=== PATIENT | female | born 1970 | race Caucasian/White ===

== ENCOUNTER → 2017-07-12 | Outpatient (CLI) | payer BC ==
[2017-07-12 15:29] LABS: ADD MAN DIFF? NO
[2017-07-12 15:34] LABS: BASO % 1 % (0-3); EOS % 1 % (0-3); HEMOGLOBIN 13.9 g/dL (12.0-15.5); LYMPH # 1.6 x10^3/uL (1.0-4.8); LYMPH % 27 % (24-48); MEAN CORPUSCULAR HEMOGLOBIN 30 pg (25-35); MEAN CORPUSCULAR HGB CONC 35 g/dL (31-37); MEAN CORPUSCULAR VOLUME 87 fL (79-100); MONO # 0.3 x10^3/uL (0.0-1.1); MONO % 5 % (0-9); NEUT # 4.1 x10^3uL (1.8-7.7); NEUT % 67 % (31-73); PLATELET COUNT 241 x10^3/uL (140-400); RED BLOOD COUNT 4.58 x10^6/uL (3.50-5.40); RED CELL DISTRIBUTION WIDTH 13.1 % (11.5-14.5); WHITE BLOOD COUNT 6.1 x10^3/uL (4.0-11.0)
[2017-07-12 15:43] LABS: ALBUMIN 4.1 g/dL (3.4-5.0); ALBUMIN/GLOBULIN RATIO 1.1 (1.0-1.7); ALK PHOS 81 U/L (46-116); ALT (SGPT) 32 U/L (14-59); ANION GAP 9 (6-14); AST (SGOT) 16 U/L (15-37); BLOOD UREA NITROGEN 11 mg/dL (7-20); BUN/CREATININE RATIO 14 (6-20); CALCIUM 8.5 mg/dL (8.5-10.1); CARBON DIOXIDE 29 mmol/L (21-32); CHLORIDE 102 mmol/L (98-107); CREATININE 0.8 mg/dL (0.6-1.0); GFR 77.2; GLUCOSE 128 mg/dL (70-99); POTASSIUM 3.7 mmol/L (3.5-5.1); SODIUM 140 mmol/L (136-145); TOTAL BILIRUBIN 0.9 mg/dL (0.2-1.0); TOTAL PROTEIN 7.8 g/dL (6.4-8.2)
[2017-07-12 17:07] LABS: BILIRUBIN,URINE NEGATIVE (NEG); CLARITY,URINE CLEAR; COLOR,URINE YELLOW; GLUCOSE,URINE NEGATIVE (NEG); NITRITE,URINE NEGATIVE (NEG); PH,URINE 6.5; PROTEIN,URINE NEGATIVE (NEG-TRACE); UROBILINOGEN,URINE 0.2 mg/dL (0.2 mg/dL)
[2017-07-12 17:24] LABS: BACTERIA,URINE 0 /HPF (0-FEW); RBC,URINE 0 /HPF (0-2); SQUAMOUS EPITHELIAL CELL,UR OCC /LPF; WBC,URINE 0 /HPF (0-4)
== END | disposition home or self-care (01) ==
LOC: SURGPAT 14:56
DX: Z01.818 Encounter for other preprocedural examination (principal); I10 Essential (primary) hypertension; R94.31 Abnormal electrocardiogram [ECG] [EKG]
CPT/HCPCS: 36415; 71046; 80053; 81001; 85025; 93005

== ENCOUNTER 2017-08-02 05:51 | Observation (INO) | payer BC ==
[~2017-08-02 05:51] MED LIST: ESTROGENS, CONJ VAGINAL CREAM 30GM TUBE.; METHYLENE BLUE 1% 10 ML VIAL.
[2017-08-02] MEDS: IV RINGERS,LACTATED 1000ML 1,000 ML IV (06:44)
[2017-08-02] MEDS ORDERED: PROCHLORPERAZINE 10 MG/2 ML VIAL. IV (07:00)
[2017-08-02] MEDS ORDERED: fentaNYL PF VIAL 100 MCG/2 ML VIAL IV (07:00)
[2017-08-02] MEDS ORDERED: MORPHINE SULFATE 4 MG/ML DISP.SYRIN. IV ×2 (07:00→10:45)
[2017-08-02] MEDS ORDERED: ONDANSETRON PF 4 MG/2 ML VIAL. IV ×2 (07:00→10:45)
[2017-08-02] MEDS ORDERED: LIDOCAINE 1% PF 2 ML VIAL. ID (07:00)
[2017-08-02 07:07] LABS: NEG OBC SER NEG; POS OBC SER POS; PREG TEST PT QUAL NEGATIVE (NEG)
[2017-08-02] MEDS ORDERED: LIDOCAINE 2% PF Vial for OR 5 ML VIAL. (07:11)
[2017-08-02] MEDS ORDERED: ROCURONIUM 50 MG/5 ML VIAL. (07:11)
[2017-08-02] MEDS ORDERED: ONDANSETRON PF 4 MG/2 ML VIAL. (07:11)
[2017-08-02] MEDS ORDERED: PROPOFOL 20 ML IV (07:11)
[2017-08-02] MEDS ORDERED: DEXAMETHASONE SOD PHOS 20 MG/5 ML VIAL. (07:11)
[2017-08-02] MEDS ORDERED: MIDAZOLAM HCL/PF 2 MG/2 ML VIAL. (07:12)
[2017-08-02] MEDS ORDERED: fentaNYL PF VIAL 100 MCG/2 ML VIAL ×4 (07:12→11:04)
[2017-08-02] MEDS ORDERED: NON FORMULARY ITEM (Levalbuterol Tartrate (Xopenex Hfa) 2 PUFF) IH (07:45)
[2017-08-02] MEDS ORDERED: ALBUTEROL SULFATE 2.5 MG/3 ML NEBU. NEB (07:45)
[2017-08-02] MEDS: BUPIVACAINE-EPI 0.25%-1:200000 50 ML VIAL. ×2 (08:14)
[2017-08-02] MEDS ORDERED: SEVOFLURANE > 120 MINUTES. IH (08:30)
[2017-08-02] MEDS ORDERED: ESMOLOL 100 MG/10 ML VIAL. IV (08:30)
[2017-08-02] MEDS ORDERED: GLYCOPYRROLATE 1 MG/5 ML VIAL. (08:54)
[2017-08-02] MEDS ORDERED: NEOSTIGMINE METHYLSULFATE 5 MG/5 ML SYRINGE. (08:54)
[2017-08-02] MEDS ORDERED: PROCHLORPERAZINE 10 MG/2 ML VIAL. (10:31)
[2017-08-02] MEDS ORDERED: ZOLPIDEM 5 MG TABLET. PO (10:45)
[2017-08-02] MEDS ORDERED: CALCIUM CARBONATE 500 MG TAB.CHEW PO (10:45)
[2017-08-02] MEDS ORDERED: diphenhydrAMINE 50 MG/ML VIAL IV (10:45)
[2017-08-02] MEDS ORDERED: 0.9 % SODIUM CHLORIDE 10 ML DISP.SYRIN. IV (10:45)
[2017-08-02] MEDS ORDERED: diphenhydrAMINE HCL 25 MG CAPSULE PO (10:45)
[2017-08-02] MEDS ORDERED: LACTULOSE 20 GM/30 ML SOLUTION. PO (10:45)
[2017-08-02] MEDS ORDERED: NALOXONE 0.4 MG/ML VIAL. IV (10:45)
[2017-08-02] MEDS ORDERED: SIMETHICONE 80 MG TAB.CHEW PO (10:45)
[2017-08-02] MEDS ORDERED: MAGNESIUM HYDROXIDE 2,400 MG/30 ML ORAL.SUSP. PO (10:45)
[2017-08-02] MEDS ORDERED: MAG HYDROX/ALUMINUM HYD/SIMETH 30 ML ORAL.SUSP PO (10:45)
[2017-08-02] MEDS: fentaNYL PF VIAL 100 MCG/2 ML VIAL IV (11:11)
[2017-08-02] MEDS: KETOROLAC 30 MG/ML INJ. IV (12:12)
[2017-08-02] MEDS: oxyCODONE/APAP 5/325 1 TAB TABLET PO ×3 (14:26→22:29)
[2017-08-02] MEDS: LISINOPRIL 10 MG TABLET PO (14:26)
[2017-08-03] MEDS: oxyCODONE/APAP 5/325 1 TAB TABLET PO ×2 (03:30→08:37)
[2017-08-03 04:12] LABS: HEMATOCRIT 36.2 % (36.0-47.0)
[2017-08-03 04:37] LABS: ANION GAP 9 (6-14); BLOOD UREA NITROGEN 8 mg/dL (7-20); CALCIUM 8.5 mg/dL (8.5-10.1); CARBON DIOXIDE 26 mmol/L (21-32); CHLORIDE 102 mmol/L (98-107); CREATININE 0.9 mg/dL (0.6-1.0); GFR 67.1; GLUCOSE 129 mg/dL (70-99); SODIUM 137 mmol/L (136-145)
[2017-08-03] MEDS: LISINOPRIL 10 MG TABLET PO (08:37)
== END 2017-08-03 09:45 | disposition home or self-care (01) ==
LOC: SURG 05:51 → 3 NORTH 10:43
DX: D25.9 Leiomyoma of uterus, unspecified (principal); N36.41 Hypermobility of urethra; N81.10 Cystocele, unspecified; N83.201 Unspecified ovarian cyst, right side; N71.9 Inflammatory disease of uterus, unspecified; N80.0 Endometriosis of uterus
CPT/HCPCS: 36415; 80048; 84703; 85014; 86850; 86900; 86901; 88307; 96374; A7015; C1771; G0378; G0379; J0690; J0780; J1100; J1885; J2250; J2405; J2704; J2710; J3010; J3490; J7030; J7120; Q9968

== ENCOUNTER → 2017-11-15 | Outpatient (CLI) | payer BC ==
[2017-08-03 08:37] VITALS: BP 121/78
[~2017-11-15] MED LIST changes: +CHOL2000 PO; -ESTROGENS, CONJ VAGINAL CREAM 30GM TUBE.; +LISI10TA2 PO; -METHYLENE BLUE 1% 10 ML VIAL.; +NAPR-683 PO; +OXYC-323 PO; +XOPENEX HFA15 GM IH
--- NOTE | 2017-11-16 09:46 | KCIC ---
Bilateral digital screening mammograms: Reason for examination: Routine screening. Comparison is made to previous studies dated 04/17/2014 and 03/22/2013. Interpretation was made with the benefit of CAD. The skin and nipples show no abnormalities. No abnormal axillary lymph nodes are seen. The breast parenchyma is heterogeneously dense. (Breast density: Category C.) There appears to be some focally increased nodularity at approximately the 7:00 B position of the right breast. Recommend further evaluation with coned compression views and ultrasound. There are no other dominant masses, suspicious calcifications or architectural distortion. Impression: Focal increased nodularity at the 7:00 B position of the right breast. Recommend further evaluation with coned compression views and ultrasound. Your patient's mammogram demonstrates that she has dense breast tissue (breast density category C or D), which could hide abnormalities, and if she has other risk factors for breast cancer that have been identified, she might benefit from supplemental screening tests that may be suggested by you as her ordering physician. Dense breast tissue, in and of itself, is a relatively common condition. Therefore, this information is not provided to cause undue concern, but rather to raise your awareness and to promote discussion with your patient regarding the presence of other risk factors, in addition to dense breast tissue. Your patient's mammography results will be sent to her. BI-RAD Category 0: Incomplete. Needs additional imaging evaluation. "Our facility is accredited by the [employer] Mammography [employer]." This patient's information has been entered into a reminder system for the patient to be notified with the results of her examination and a target date for the next mammogram. Electronically signed by: Keyla Izaguirre MD (11/16/2017 9:42 AM) [id number]
== END | disposition home or self-care (01) ==
LOC: KCIC MAMMO 08:04
PROVIDERS: ATTEND Family Medicine
DX: Z12.31 Encounter for screening mammogram for malignant neoplasm of breast (principal); I10 Essential (primary) hypertension
CPT/HCPCS: 77067

== ENCOUNTER → 2017-11-24 | Outpatient (CLI) | payer BC ==
[2017-08-03 08:37] VITALS: BP 121/78
--- NOTE | 2017-11-24 14:53 | KCIC ---
Right breast diagnostic digital mammogram: Reason for examination: Nodular density on screening mammogram. Comparison is made to mammographic exam dated 11/15/2017. Coned compression views were obtained of the right breast. A small circumscribed nodule persists at the 7:00 position with no associated calcification seen. IMPRESSION: Small circumscribed nodule at the 7:00 position. Ultrasound to follow. BI-RADS Category 0: Incomplete. Needs additional imaging evaluation. Right breast ultrasound: Ultrasound examination was performed in the area of mammographic concern and at the right axilla. There is a 12.5 x 9.4 x 5.5 mm fibrocystic lesion present at the 7:00 position 1 cm from the nipple showing some posterior acoustic enhancement. This shows some posterior acoustic enhancement. No suspicious nodules are seen. There is a small nodule consistent with an intramammary lymph node at the 7:00 position 5.5 cm from the nipple measuring 6.8 x 5.4 mm in size. There is also a small septated cystic lesion 4.7 mm in size at the 9:00 position 6 cm from the nipple which has benign appearance. No abnormal appearing lymph nodes are seen in the axilla. IMPRESSION: Small fibrocystic lesion at the 7:00 position 1 cm from the nipple corresponds to the area of mammographic concern. Additional small 4.7 mm fibrocystic lesion at the 9:00 position. An intramammary lymph node at the 7:00 position 5.5 cm from the nipple. No suspicious abnormality seen. Recommend reevaluation with ultrasound in 6 months. BI-RADS Category 3: Probably Benign. "Our facility is accredited by the [employer] Mammography [employer]." This patient's information has been entered into a reminder system for the patient to be notified with the results of her examination and a target date for the next mammogram. Electronically signed by: Keyla Izaguirre MD (11/24/2017 2:49 PM) [id number]
== END | disposition home or self-care (01) ==
LOC: KCIC MAMMO 10:07
PROVIDERS: ATTEND Family Medicine
DX: N63.13 Unspecified lump in the right breast, lower outer quadrant (principal); I10 Essential (primary) hypertension
CPT/HCPCS: 76641; 77065

== ENCOUNTER → 2018-06-08 | Outpatient (CLI) | payer BC ==
[2017-08-03 08:37] VITALS: BP 121/78
[~2018-06-08] MED LIST changes: -OXYC-323 PO; +OXYC1TAB15 PO
--- NOTE | 2018-06-08 09:06 | RAD ---
Examination: Limited right breast ultrasound History: Abnormal mammogram. 6 month follow-up. Comparison/Correlation: 11/24/2017 Limited right breast ultrasound exam Findings: Limited right breast ultrasound exam was performed. At the 7:00 region 1 cm from the nipple, there is a 0.9 cm x 1 cm x 0.4 cm structure with a hypoechoic periphery and mildly hyperechoic center. This has remained stable. At the 9:00 region, there is a 0.5 cm transverse by 0.5 cm x 0.2 similar tall hypoechoic structure that has remained stable. It is located 6 cm from the nipple. At at the 9:00 region 6 cm from the nipple, there is a 0.5 cm 0.5 cm x 0.2 cm tall hypoechoic structure which has remained stable. Impression: BI-RADS Category 3-probably benign. Stability of the right breast lesions noted. Six-month follow-up at the time of annual screening mammography is recommended to assess stability.
== END | disposition home or self-care (01) ==
LOC: KCIC US 07:57
PROVIDERS: ATTEND Family Medicine
DX: N64.89 Other specified disorders of breast (principal)
CPT/HCPCS: 76641

== ENCOUNTER → 2020-10-05 | Outpatient (CLI) | payer BC ==
[2017-08-03 08:37] VITALS: BP 121/78
[~2020-10-05] MED LIST changes: +LISI10TA16 PO; -LISI10TA2 PO
--- NOTE | 2020-10-05 12:57 | KCIC ---
Bilateral digital screening mammograms: Reason for examination: Routine screening. Comparison is made to previous studies dated back to 03/22/2013. Interpretation was made with the benefit of CAD. The skin and nipples show no abnormalities. No abnormal axillary lymph nodes are seen. The breast par enchyma shows scattered fibroglandular density. (Breast density: Category B.) There continue to be sm all nodular densities which correspond to cystic/fibrocystic nodules seen on previous ultrasound exam inations of the right breast. There are no new dominant masses, suspicious calcifications or architec tural distortions. Impression: No evidence of malignancy. Recommend routine screening. BI-RADS Category 2: Benign. "Our facility is accredited by the [employer] Mammography [employer]." This patient's information has been entered into a reminder system for the patient to be notified wit h the results of her examination and a target date for the next mammogram. Electronically signed by: Keyla Izaguirre MD (10/05/2020 12:54 PM) [id number]
== END ==
LOC: KCIC MAMMO 08:38
PROVIDERS: ATTEND Family Medicine
DX: Z12.31 Encounter for screening mammogram for malignant neoplasm of breast (principal)
CPT/HCPCS: 77067